=== PATIENT | male | born 1970 | race Caucasian/White ===

== ENCOUNTER 2022-09-30 19:34 | Emergency (ER) | payer MEDICAID ==
[~2022-09-30] VITALS: Ht 175.3 cm; Wt 82.7 kg
[2022-09-30 19:56] VITALS: BP 128/84; PULSE 85; RESP 16; TEMP 98.5; O2SAT 98
[2022-09-30] MEDS ORDERED: BACITRACIN ZINC OINT UDPKT TOP ONE (20:45)
[2022-09-30] MEDS ORDERED: LIDOCAINE HCL/PF 1% 10 MG/ML 5ML VIAL INFIL ONE (20:45)
[2022-09-30] MEDS ORDERED: CEPH500T MT (21:18)
== END 2022-09-30 21:33 | disposition home or self-care (01) ==
LOC: ER 19:34
DX: S61.310A Laceration without foreign body of right index finger with damage to nail, initial encounter (principal); W26.8XXA Contact with other sharp object(s), not elsewhere classified, initial encounter; Y93.89 Activity, other specified; Y92.89 Other specified places as the place of occurrence of the external cause; Y99.8 Other external cause status
CPT/HCPCS: 12002; 73130; 99283

== ENCOUNTER 2022-10-11 08:23 | Emergency (ER) | payer MEDICAID ==
[~2022-10-11] VITALS: Ht 175.3 cm; Wt 81.6 kg
[~2022-10-11 08:23] MED LIST: CEPH500T MT
[2022-10-11 08:54] VITALS: BP 129/82; PULSE 74; RESP 16; TEMP 98.5; O2SAT 98
== END 2022-10-11 09:37 | disposition home or self-care (01) ==
LOC: ER 08:23
DX: Z48.02 Encounter for removal of sutures (principal)
CPT/HCPCS: 99281; Z7610